=== PATIENT | male | born 1960 | race Caucasian/White ===

== ENCOUNTER 2025-08-11 17:23 | Emergency (ER) | payer MEDICAID ==
[~2025-08-11] VITALS: Ht 167.6 cm; Wt 68.0 kg
[2025-08-11 17:26] VITALS: O2SAT 96
[2025-08-11 17:32] VITALS: BP 156/84; PULSE 85; RESP 18; TEMP 37.1; O2SAT 97
== END 2025-08-11 18:56 | disposition left against medical advice (07) ==
LOC: ER 17:23
DX: F10.129 Alcohol abuse with intoxication, unspecified (principal); Z53.21 Procedure and treatment not carried out due to patient leaving prior to being seen by health care provider; Y90.9 Presence of alcohol in blood, level not specified
CPT/HCPCS: 99281